=== PATIENT | male | born 1980 | race Caucasian/White ===

== ENCOUNTER 2016-07-07 16:21 | Outpatient (CLI) | payer BC | END 2016-07-07 20:12 | disposition home or self-care (01) | LOC: SRD 16:21 | PROVIDERS: ATTEND Internal Medicine | DX: M79.671 Pain in right foot (principal) ==

== ENCOUNTER 2017-07-14 10:16 | Outpatient (CLI) | payer BC | END 2017-07-14 19:41 | disposition home or self-care (01) | LOC: SRD 10:16 | PROVIDERS: ATTEND Internal Medicine | DX: R05 Cough (principal) | CPT/HCPCS: 71046-TC ==